=== PATIENT | male | born 1970 | race African-American/Black ===

== ENCOUNTER 2019-05-11 17:11 | Emergency (ER) | payer BC ==
[2019-05-11] MEDS ORDERED: ASPIRIN 81 MG TABLET, CHEWABLE PO ONE (17:38)
--- NOTE | 2019-05-11 17:39 | ER Document Report ---
ED Medical Screen (RME) - General Chief Complaint: Chest Pain Stated Complaint: CHEST PAIN/DIZZY Time Seen by Provider: 05/11/19 17:33 Primary Care Provider: EDWINA AQUINO NP-C [Primary Care Provider] - Follow up as needed Information source: Patient Notes: Patient presents complaining of elevated blood pressure for the past week. Patient states this morning he had nausea and some blurred vision. Patient complains of continued chest pressure that started around 2 PM today. Patient denies any cough or cold symptoms. I have greeted and performed a rapid initial assessment of this patient. A comprehensive ED assessment and evaluation of the patient, analysis of test results and completion of the medical decision making process will be conducted by additional ED providers. TRAVEL OUTSIDE OF THE [place] IN LAST 30 DAYS: No - Related Data Allergies/Adverse Reactions: No Known Allergies Allergy (Verified 05/11/19 17:34) Past Medical History Pulmonary Medical History: Reports: Hx Pneumonia - Immunizations Hx Diphtheria, Pertussis, Tetanus Vaccination: Yes Physical Exam - Vital signs Vitals: Temp Pulse Resp BP Pulse Ox 97.9 F 87 18 151/93 H 98 05/11/19 17:33 05/11/19 17:33 05/11/19 17:33 05/11/19 17:33 05/11/19 17:33 - General General appearance: Appears well, Alert - Cardiovascular Rhythm: Regular Heart sounds: S1 appreciated, S2 appreciated Course - Vital Signs Vital signs: Temp Pulse Resp BP Pulse Ox 97.9 F 87 18 151/93 H 98 05/11/19 17:33 05/11/19 17:33 05/11/19 17:33 05/11/19 17:33 05/11/19 17:33 Doctor's Discharge - Discharge Referrals: EDWINA AQUINO NP-C [Primary Care Provider] - Follow up as needed
[2019-05-11 18:19] LABS: ABSOLUTE LYMPHOCYTES (AUTO) 0.9 10^3/uL (0.5-4.7); ABSOLUTE MONOCYTES (AUTO) 0.5 10^3/uL (0.1-1.4); MEAN CORPUSCULAR HGB CONC 33.7 g/dL (32.0-36.0); TOTAL CELLS COUNTED % (AUTO) 100 %
[2019-05-11 18:24] LABS: ABSOLUTE NEUT (AUTO) 2.8 10^3/uL (1.7-8.2); BASOPHILS % (AUTO) 0.8 % (0-2); EOSINOPHILS % (AUTO) 0.9 % (0-6); HEMOGLOBIN 14.1 g/dL (13.5-17.0); LYMPHOCYTES % (AUTO) 21.1 % (13-45); MEAN CORPUSCULAR HEMOGLOBIN 29.4 pg (27.0-33.4); MEAN CORPUSCULAR VOLUME 87 fl (80-97); MONOCYTES % (AUTO) 11.6 % (3-13); PLATELET COUNT 210 10^3/uL (150-450); RED BLOOD COUNT 4.81 10^6/uL (4.35-5.55); RED CELL DISTRIBUTION WIDTH 13.3 % (11.5-14.0); SEGMENTED NEUTROPHILS % (AUTO) 65.6 % (42-78); WHITE BLOOD COUNT 4.3 10^3/uL (4.0-10.5)
[2019-05-11 18:38] LABS: ALBUMIN 4.7 g/dL (3.5-5.0); ALKALINE PHOSPHATASE 79 U/L (38-126); ANION GAP 12 (5-19); ASPARTATE AMINO TRANSFERASE 33 U/L (17-59); BILIRUBIN,DIRECT 0.1 mg/dL (0.0-0.4); BILIRUBIN,TOTAL 0.5 mg/dL (0.2-1.3); BLOOD UREA NITROGEN 17 mg/dL (7-20); CALCIUM 9.8 mg/dL (8.4-10.2); CARBON DIOXIDE 29 mmol/L (22-30); CHLORIDE 98 mmol/L (98-107); GLUCOSE 92 mg/dL (75-110); TOTAL PROTEIN 8.4 g/dL (6.3-8.2)
--- NOTE | 2019-05-11 19:15 | RADIOLOGY REPORT (SQ) ---
EXAM DESCRIPTION: CHEST 2 VIEWS COMPLETED DATE/TIME: 05/11/2019 6:51 pm REASON FOR STUDY: cp COMPARISON: 01/06/2013 NUMBER OF VIEWS: Two view. TECHNIQUE: Frontal and lateral radiographic views of the chest acquired. LIMITATIONS: None. FINDINGS: LUNGS AND PLEURA: Peribronchial cuffing and interstitial -nodular changes. No consolidati on, effusion, or pneumothorax. MEDIASTINUM AND HILAR STRUCTURES: No masses. No contour abnormalities. HEART AND VASCULAR STRUCTURES: Heart normal in size and contour. No evidence for failure. BONES: No acute findings. HARDWARE: None in the chest. OTHER: No other significant finding. IMPRESSION: REACTIVE AIRWAY DISEASE VERSUS VIRAL SYNDROME. NO CONSOLIDATION. TECHNICAL DOCUMENTATION: JOB ID: [id number] [place]-72 2010 [employer]- All Rights Reserved Reading location - IP/workstation name: [email or web address]
--- NOTE | 2019-05-11 20:46 | ER Document Report ---
ED General - General Chief Complaint: Chest Pain Stated Complaint: CHEST PAIN/DIZZY Time Seen by Provider: 05/11/19 17:33 Primary Care Provider: EDWINA AQUINO NP-C [NO LOCAL MD] - Follow up as needed Mode of Arrival: Ambulatory Information source: Patient Notes: 48-year-old man presents to the emergency department with a complaint of elevated blood pressures noted on a home monitoring unit. Also complains of headache and chest tightness and mild nausea. Apparently, history of histoplasmosis, has been seeing a primary care doctor and blood pressure is being monitored carefully for possible hypertension. Presently blood pressure is 133/86 and his symptoms have improved. TRAVEL OUTSIDE OF THE [place] IN LAST 30 DAYS: No - Related Data Allergies/Adverse Reactions: No Known Allergies Allergy (Verified 05/11/19 17:34) Past Medical History - General Information source: Patient - Social History Smoking Status: Never Smoker Chew tobacco use (# tins/day): No Frequency of alcohol use: Heavy Drug Abuse: None Family History: Reviewed & Not Pertinent Patient has suicidal ideation: No Patient has homicidal ideation: No Pulmonary Medical History: Reports: Hx Pneumonia - Immunizations Hx Diphtheria, Pertussis, Tetanus Vaccination: Yes Review of Systems - Review of Systems Notes: Constitutional: Negative for fever. HENT: Negative for sore throat. Eyes: Negative for visual changes. Cardiovascular:+ chest pain. Respiratory: Negative for shortness of breath. Gastrointestinal: Negative for abdominal pain, vomiting or diarrhea. Genitourinary: Negative for dysuria. Musculoskeletal: Negative for back pain. Skin: Negative for rash. Neurological: +headaches, no weakness or numbness. 10 point ROS negative except as marked above and in HPI. Physical Exam - Vital signs Vitals: Temp Pulse Resp BP Pulse Ox 97.9 F 87 18 151/93 H 98 05/11/19 17:33 05/11/19 17:33 05/11/19 17:33 05/11/19 17:33 05/11/19 17:33 Course - Vital Signs Vital signs: Temp Pulse Resp BP Pulse Ox 97.9 F 87 17 133/95 H 94 05/11/19 17:36 05/11/19 17:33 05/11/19 19:25 05/11/19 19:16 05/11/19 19:25 - Laboratory Result Diagrams: 05/11/19 18:04 05/11/19 18:04 Laboratory results interpreted by me: 05/11/19 18:04 Total Protein 8.4 H Discharge - Discharge Clinical Impression: Elevated blood pressure reading Condition: Good Disposition: HOME, SELF-CARE Additional Instructions: Please follow-up with your primary care doctor, take your blood pressure monitor with you to the office visit. Return to the emergency department if you have further questions or concerns. Forms: Elevated Blood Pressure Referrals: EDWINA AQUINO NP-C [NO LOCAL MD] - Follow up as needed
[2019-05-11 21:11] VITALS: BP 140/91
--- NOTE | 2019-05-12 01:17 | EKG REPORT ---
SEVERITY:- ABNORMAL ECG - SINUS RHYTHM LEFT VENTRICULAR HYPERTROPHY NONSPECIFIC T ABNORMALITIES, INFERIOR LEADS : Confirmed by: Bk Rausch 12-May-2019 01:17:21
== END 2019-05-11 21:23 | disposition home or self-care (01) ==
LOC: ER 17:11
DX: R03.0 Elevated blood-pressure reading, without diagnosis of hypertension (principal); R07.9 Chest pain, unspecified; R42 Dizziness and giddiness; R51 Headache; R07.89 Other chest pain; R11.0 Nausea
CPT/HCPCS: 36415; 71046; 80053; 84484; 85025; 93005; 93010; 99285

== ENCOUNTER → 2020-06-14 | Outpatient (CLI) | payer BC ==
[~2020-06-14] MED LIST: COVID-19 VACCINE (PFIZER)/PF 30 MCG/0.3 ML VIAL IM ONE; EPINEPHRINE INJ/PF 1 MG/1 ML AMPULE IM PRN
== END ==
LOC: EMPHEALTH 17:29
PROVIDERS: ATTEND Internal Medicine
DX: Z23 Encounter for immunization (principal)
CPT/HCPCS: 91300